=== PATIENT | female | born 1980 | race Caucasian/White ===

== ENCOUNTER 2016-03-31 13:39 | Inpatient (IN) ==
[2016-03-31 14:06] LABS: Bilirubin,Urine Negative (Negative); Blood,Urine Negative (Negative); Clarity,Urine Cloudy (Clear); Color,Urine Yellow (Yellow); Glucose,Urine (UA) Normal (Normal); Ketones,Urine Negative (Negative); Leukocyte Esterase,Urine Moderate (Negative); Nitrite,Urine Negative (Negative); Protein,Urine Negative (Neg-Trace); Specific Gravity,Urine 1.017 (1.010-1.025); Urobilinogen,Urine Normal (Normal)
[2016-03-31 14:08] LABS: Bacteria,Urine Moderate per hpf (None-Few); Hyaline Casts,Urine None Seen per lpf (None-Few); RBC,Urine 0-3 per hpf (0-3); Squamous Epithelial Cell,Urine Many per lpf (None-Few)
[2016-03-31 14:16] LABS: Amphetamine Screen,Urine Negative ng/mL (Cutoff=1000); Barbiturate Screen,Urine Negative ng/mL (Cutoff=200); Benzodiazepines Screen,Urine Negative ng/mL (Cutoff=200); Cannabinoid Screen,Urine Positive ng/mL (Cutoff = 50); Cocaine Screen,Urine Negative ng/mL (Cutoff= 300); Opiate Screen,Urine Negative ng/mL (Cutoff=300); Phencyclidine Screen,Urine Negative ng/mL (Cutoff=25)
[2016-03-31 14:30] LABS: Basophils # 0.1 K/mcL (0.0-0.2); Basophils % 0.5 %; Eosinophils # 0.1 K/mcL (0.0-0.6); Eosinophils % 0.5 %; Hematocrit 45.9 % (35.3-44.9); Hemoglobin 15.2 g/dL (11.5-15.4); Immature Granulocytes % 0.6 % (0-4); Immature Platelets 3.5 % (1.1-6.1); Lymphocytes # 3.2 K/mcL (0.6-4.6); Lymphocytes % 18.3 %; Mean Corpuscular HGB Conc 33.1 g/dL (31.6-35.5); Mean Corpuscular Hemoglobin 30.8 pg (28.0-33.3); Mean Corpuscular Volume 92.9 fL (83.0-100.0); Mean Platelet Volume 10.1 fL (9.4-12.4); Monocytes # 0.9 K/mcL (0.0-1.3); Monocytes % 5.3 %; Neutrophils # 12.9 K/mcL (1.6-8.9); Platelet Count 359 K/mcL (140-400); Red Blood Count 4.94 M/mcL (3.82-4.97); Red Cell Distribution Width 15.7 % (11.5-14.5); Segmented Neutrophils % 74.8 %
--- NOTE | 2016-03-31 14:38 | Emergency Department Note ---
START Narrative - START START: I examined this patient and my medical decision-making was reviewed with the PRECAST WORKER/PA/Advanced Practice Nurse/Resident Physician. I agree with the documented findings, disposition and treatment plan as described except to the extent set forth below. Patient emergency department the chief complaint of wanting to . Patient states that everyone in her family has over the past 2 years and she does not want to be here anymore. Patient states she drank alcohol and took Tylenol last night. Exam shows awake and alert in no distress. Abdomen soft lungs clear. Plan. Medical clearance including an aspirin and Tylenol level.
[2016-03-31 14:44] LABS: Alanine Aminotransferase 19 Units/L (0-55); Albumin 3.6 g/dL (3.5-5.0); Albumin/Globulin Ratio 0.9 (1.1-2.2); Alkaline Phosphatase 97 Units/L (38-126); Aspartate Amino Transferase 18 Units/L (5-34); BUN/Creatinine Ratio 18 (6-26); Bilirubin,Direct 0.1 mg/dL (0.0-0.5); Bilirubin,Indirect 0.1 mg/dL (0.0-1.2); Bilirubin,Total 0.2 mg/dL (0.2-1.2); Blood Urea Nitrogen 14 mg/dL (7-20); Carbon Dioxide 15 mEq/L (19-29); Chloride 110 mEq/L (98-109); Ethanol 87 mg/dL (0-10); Globulin 3.9 g/dL (2.4-3.5); Glucose 133 mg/dL (70-99); Osmolality,Calculated 288 (280-300); Potassium 3.4 mEq/L (3.5-4.5); Sodium 138 mEq/L (136-145); Total Protein 7.5 g/dL (6.0-8.3); eGFR For African Americans > 60 (> 60); eGFR For Non-African Americans > 60 (> 60)
[2016-03-31 14:45] LABS: Salicylate < 5.0 mg/dL (15-30)
[2016-03-31 15:04] LABS: Thyroid Stimulating Hormone 0.591 mcIU/mL (0.350-4.840)
--- NOTE | 2016-03-31 15:19 | Emergency Department Note ---
Disposition Clinical Impression: Suicidal ideations Disposition: Admitted As Inpatient Psych HPI - General Chief Complaint: ED Psychiatric Symptoms Stated Complaint: SI, attempt: pills + ETOH Time Seen by Provider: 03/31/16 13:56 Source: patient - History of Present Illness HPI Narrative: 36 -year-old female presenting with complaint of suicidal ideation, feeling depressed, visual hallucinations. Patient stated that she has history of bipolar, and has not been taking her medication for a very long time. Stated that she has been recently very depressed due to in the family, stated that sometimes she sees her mother either in her dreams are sometimes when she is sitting wide-awake. Patient stated that she took some Benadryl and Tylenol last night around 9 PM, and also consumed alcohol. Patient is currently sober, mentally intact, no belly pain, no chest pain. Pt complaint: suicidal ideation Onset (ago): week(s) (1) Duration: intermittent History of similar episodes: Yes Improves with: none Worsens with: none - Related Data Allergies Allergy/AdvReac Type Severity Reaction Status Date / Time amitriptyline Allergy Seizure Verified 03/31/16 17:25 azithromycin [From Zithromax] Allergy Difficulty Verified 03/22/15 19:58 Breathing divalproex sodium Allergy Vomiting Verified 03/31/16 17:25 [From Depakote] All systems ED: reviewed and negative except as stated. Constitutional: Denies: fever, chills, weakness Cardiovascular: Denies: chest pain, palpitations Respiratory: Denies: cough, dyspnea, wheezes Gastrointestinal: Denies: abdominal pain, nausea Genitourinary: Denies: urgency, dysuria, frequency Neurological: Denies: headache, weakness, numbness Psychiatric: Reports: anxiety, depression, suicidal thoughts Past Medical History - Past Medical History Medical history: Reports: hypertension Psychiatric history: Reports: bipolar [employer] history: Reports: bilateral tubal ligation - Social History Smoking Status: Current every day smoker Smokeless Tobacco Status: No Alcohol use: Reports: occasionally Drug use: Reports: none Physical Exam - General Limitations: no limitations General appearance: alert, in no apparent distress - Head Head exam: atraumatic, normocephalic, normal inspection - Eye Eye exam: Present: normal appearance, PERRL, EOMI - Expanded Eye Exam Pupils: Left: reactive - ENT ENT exam: normal exam, normal oropharynx, mucous membranes moist - Expanded ENT Exam External ear exam: Present: normal external inspection Mouth exam: Present: normal external inspection Teeth exam: Present: normal inspection Throat exam: Present: normal inspection - Neck Neck exam: Present: normal inspection, full ROM, trachea midline - Chest Chest inspection: Present: normal inspection, symmetric chest wall rise - Respiratory Respiratory exam: Present: normal lung sounds bilaterally - Cardiovascular Cardiovascular exam: Present: regular rate, normal rhythm, normal heart sounds - Abdominal Exam Abdominal exam: Present: soft, Non-Tender. Absent: tenderness, distention, guarding, rebound, rigidity - Extremities Exam Extremities exam: Present: normal inspection, full ROM. Absent: tenderness, pedal edema - Expanded Upper Extremity Exam Vascular exam: Normal: capillary refill, radial pulse - Expanded Lower Extremity Exam Neurovascular/Tendon exam: Absent: motor deficit, sensory deficit, tendon deficit - Back Exam Back exam: Present: normal inspection, full ROM. Absent: tenderness - Neurological Exam Neurological exam: Present: alert, oriented X3 - Expanded Neurological Exam Patient oriented to: Present: person, place, time Coma Scale Eye Opening: Spontaneous Coma Scale Motor Response: Obeys Commands Coma Scale Verbal Response: Oriented Coma Scale Total: 15 - Psychiatric Psychiatric exam: Present: normal affect, normal mood - Skin Skin exam: Present: warm, dry, intact, normal color Course Course Narrative: Patient presented with complaint of suicidal ideation, depression, visual hallucinations. She has history of bipolar, she seems tearful in the ED. I will clear patient medically and have her be seen by psychiatry for further evaluation. Patient stated that she took some Tylenol with alcohol last night, it's not clear how much she took. Salicylate/acetaminophen levels in the ED within normal limits. Vital Signs Temperature 99.1 F 03/31/16 13:44 Pulse Rate 68 03/31/16 13:44 Respiratory Rate 16 03/31/16 13:44 Blood Pressure 138/91 03/31/16 13:44 O2 Sat by Pulse Oximetry 98 03/31/16 13:44 Temperature 99.1 F 03/31/16 18:07 Pulse Rate 116 03/31/16 18:07 Respiratory Rate 18 03/31/16 18:07 Blood Pressure 129/97 03/31/16 18:07 O2 Sat by Pulse Oximetry 98 03/31/16 13:44 Oxygen Delivery Oxygen Delivery Room Air Psych - Lab Data Result diagrams: 03/31/16 14:24 03/31/16 14:24 Lab Results 03/31/16 03/31/16 03/31/16 Range/Units 14:00 14:00 14:00 WBC (4.3-11.1) K/mcL RBC (3.82-4.97) M/mcL Hgb (11.5-15.4) g/dL Hct (35.3-44.9) % MCV (83.0-100.0) fL MCH (28.0-33.3) pg MCHC (31.6-35.5) g/dL RDW (11.5-14.5) % Plt Count (140-400) K/mcL MPV (9.4-12.4) fL Immature Gran % (0-4) % Seg Neutrophils % % Lymphocytes % % Monocytes % % Eosinophils % % Basophils % % Neutrophils # (1.6-8.9) K/mcL Lymphocytes # (0.6-4.6) K/mcL Monocytes # (0.0-1.3) K/mcL Eosinophils # (0.0-0.6) K/mcL Basophils # (0.0-0.2) K/mcL Immature Plt Fraction (1.1-6.1) % Sodium (136-145) mEq/L Potassium (3.5-4.5) mEq/L Chloride (98-109) mEq/L Carbon Dioxide (19-29) mEq/L BUN (7-20) mg/dL Creatinine (0.57-1.11) mg/dL Est GFR ( Amer) (> 60) Est GFR (Non-Af Amer) (> 60) BUN/Creatinine Ratio (6-26) Glucose (70-99) mg/dL Calculated Osmolality (280-300) Calcium (8.6-10.8) mg/dL Total Bilirubin (0.2-1.2) mg/dL Direct Bilirubin (0.0-0.5) mg/dL Indirect Bilirubin (0.0-1.2) mg/dL AST (5-34) Units/L ALT (0-55) Units/L Alkaline Phosphatase (38-126) Units/L Serum Total Protein (6.0-8.3) g/dL Albumin (3.5-5.0) g/dL Globulin (2.4-3.5) g/dL Albumin/Globulin Ratio (1.1-2.2) TSH (0.350-4.840) mcIU/mL Urine Color Yellow (Yellow) Urine Clarity Cloudy A (Clear) Urine pH 6.0 (5.0-8.0) pH Units Ur Specific [place] 1.017 (1.010-1.025) Urine Protein Negative (Neg-Trace) mg/dL Urine Glucose (UA) Normal (Normal) mg/dL Urine Ketones Negative (Negative) mg/dL Urine Blood Negative (Negative) Urine Nitrite Negative (Negative) Urine Bilirubin Negative (Negative) Urine Urobilinogen Normal (Normal) mg/dL Ur Leukocyte Esterase Moderate H (Negative) Urine Microscopic RBC 0-3 (0-3) per hpf Urine Microscopic WBC 5-15 H (0-3) per hpf Ur Squamous Epith Cells Many H (None-Few) per lpf Urine Bacteria Moderate H (None-Few) per hpf Hyaline Casts None Seen (None-Few) per lpf Urine Test Negative (Negative) Salicylates (15-30) mg/dL Urine Opiates Screen Negative (Kswoyp=184) ng/mL Acetaminophen (10-30) mcg/mL Ur Barbiturates Screen Negative (Oyiwqf=415) ng/mL Ur Phencyclidine Scrn Negative (Cutoff=25) ng/mL Ur Amphetamines Screen Negative (Tzxiiw=8521) ng/mL U Benzodiazepines Scrn Negative (Gadhub=024) ng/mL Urine Cocaine Screen Negative (Cutoff= 300) ng/mL U Marijuana (THC) Screen Positive H (Cutoff = 50) ng/mL Ethyl Alcohol (0-10) mg/dL 03/31/16 03/31/16 Range/Units 14:24 14:24 WBC 17.2 H (4.3-11.1) K/mcL RBC 4.94 (3.82-4.97) M/mcL Hgb 15.2 (11.5-15.4) g/dL Hct 45.9 H (35.3-44.9) % MCV 92.9 (83.0-100.0) fL MCH 30.8 (28.0-33.3) pg MCHC 33.1 (31.6-35.5) g/dL RDW 15.7 H (11.5-14.5) % Plt Count 359 (140-400) K/mcL MPV 10.1 (9.4-12.4) fL Immature Gran % 0.6 (0-4) % Seg Neutrophils % 74.8 % Lymphocytes % 18.3 % Monocytes % 5.3 % Eosinophils % 0.5 % Basophils % 0.5 % Neutrophils # 12.9 H (1.6-8.9) K/mcL Lymphocytes # 3.2 (0.6-4.6) K/mcL Monocytes # 0.9 (0.0-1.3) K/mcL Eosinophils # 0.1 (0.0-0.6) K/mcL Basophils # 0.1 (0.0-0.2) K/mcL Immature Plt Fraction 3.5 (1.1-6.1) % Sodium 138 (136-145) mEq/L Potassium 3.4 L (3.5-4.5) mEq/L Chloride 110 H (98-109) mEq/L Carbon Dioxide 15 L (19-29) mEq/L BUN 14 (7-20) mg/dL Creatinine 0.78 (0.57-1.11) mg/dL Est GFR ( Amer) > 60 (> 60) Est GFR (Non-Af Amer) > 60 (> 60) BUN/Creatinine Ratio 18 (6-26) Glucose 133 H (70-99) mg/dL Calculated Osmolality 288 (280-300) Calcium 9.0 (8.6-10.8) mg/dL Total Bilirubin 0.2 (0.2-1.2) mg/dL Direct Bilirubin 0.1 (0.0-0.5) mg/dL Indirect Bilirubin 0.1 (0.0-1.2) mg/dL AST 18 (5-34) Units/L ALT 19 (0-55) Units/L Alkaline Phosphatase 97 (38-126) Units/L Serum Total Protein 7.5 (6.0-8.3) g/dL Albumin 3.6 (3.5-5.0) g/dL Globulin 3.9 H (2.4-3.5) g/dL Albumin/Globulin Ratio 0.9 L (1.1-2.2) TSH 0.591 (0.350-4.840) mcIU/mL Urine Color (Yellow) Urine Clarity (Clear) Urine pH (5.0-8.0) pH Units Ur Specific [place] (1.010-1.025) Urine Protein (Neg-Trace) mg/dL Urine Glucose (UA) (Normal) mg/dL Urine Ketones (Negative) mg/dL Urine Blood (Negative) Urine Nitrite (Negative) Urine Bilirubin (Negative) Urine Urobilinogen (Normal) mg/dL Ur Leukocyte Esterase (Negative) Urine Microscopic RBC (0-3) per hpf Urine Microscopic WBC (0-3) per hpf Ur Squamous Epith Cells (None-Few) per lpf Urine Bacteria (None-Few) per hpf Hyaline Casts (None-Few) per lpf Urine Test (Negative) Salicylates < 5.0 L (15-30) mg/dL Urine Opiates Screen (Vmfxyd=207) ng/mL Acetaminophen 2.0 L (10-30) mcg/mL Ur Barbiturates Screen (Bmubah=252) ng/mL Ur Phencyclidine Scrn (Cutoff=25) ng/mL Ur Amphetamines Screen (Jovdmh=3025) ng/mL U Benzodiazepines Scrn (Ktpegt=392) ng/mL Urine Cocaine Screen (Cutoff= 300) ng/mL U Marijuana (THC) Screen (Cutoff = 50) ng/mL Ethyl Alcohol 87 H (0-10) mg/dL - EKG Data EKG shows normal: sinus rhythm Rate: normal Rhythm: NSR Interpretation: no acute changes Psychiatric Medical Clearance - Medical Clearance Checklist Medical History: No Social History Section defined Current Vitals: Last Vital Signs Temp 99.1 F 03/31/16 18:07 Pulse 116 03/31/16 18:07 Resp 18 03/31/16 18:07 BP 129/97 03/31/16 18:07 Pulse Ox 98 03/31/16 13:44 Psychiatric Lab Panel: Drug Levels and Toxicity 03/31/16 03/31/16 14:00 14:24 Urine Opiates Screen Negative Acetaminophen 2.0 L Ur Barbiturates Screen Negative Ur Phencyclidine Scrn Negative Ur Amphetamines Screen Negative U Benzodiazepines Scrn Negative Urine Cocaine Screen Negative U Marijuana (THC) Screen Positive H Ethyl Alcohol 87 H Abnormal Labs: Abnormal lab results WBC 17.2 K/mcL (4.3-11.1) H 03/31/16 14:24 Hct 45.9 % (35.3-44.9) H 03/31/16 14:24 RDW 15.7 % (11.5-14.5) H 03/31/16 14:24 Neutrophils # 12.9 K/mcL (1.6-8.9) H 03/31/16 14:24 Potassium 3.4 mEq/L (3.5-4.5) L 03/31/16 14:24 Chloride 110 mEq/L (98-109) H 03/31/16 14:24 Carbon Dioxide 15 mEq/L (19-29) L 03/31/16 14:24 Glucose 133 mg/dL (70-99) H 03/31/16 14:24 Globulin 3.9 g/dL (2.4-3.5) H 03/31/16 14:24 Albumin/Globulin Ratio 0.9 (1.1-2.2) L 03/31/16 14:24 Urine Clarity Cloudy (Clear) A 03/31/16 14:00 Ur Leukocyte Esterase Moderate (Negative) H 03/31/16 14:00 Urine Microscopic WBC 5-15 per hpf (0-3) H 03/31/16 14:00 Ur Squamous Epith Cells Many per lpf (None-Few) H 03/31/16 14:00 Urine Bacteria Moderate per hpf (None-Few) H 03/31/16 14:00 Salicylates < 5.0 mg/dL (15-30) L 03/31/16 14:24 Acetaminophen 2.0 mcg/mL (10-30) L 03/31/16 14:24 U Marijuana (THC) Screen Positive ng/mL (Cutoff = 50) H 03/31/16 14:00 Ethyl Alcohol 87 mg/dL (0-10) H 03/31/16 14:24 Statement of Medical Clearance: I have evaluated the patient, reviewed diagnostic information, and certify that the patient's medical condition is sufficiently stable that transfer to the psychiatric unit does not pose a significant risk of deterioration.
[2016-03-31] MEDS ORDERED: Nicotine 21 MG PATCH.TD24 TD STA (15:27)
[2016-03-31] MEDS ORDERED: Ibuprofen 400 MG TABLET PO PRN (18:00)
[2016-03-31] MEDS ORDERED: *HR* LORazepam 1 MG TABLET PO PRN (18:00)
[2016-03-31] MEDS ORDERED: traZODone 50 MG TABLET PO PRN (18:00)
[2016-03-31] MEDS ORDERED: Haloperidol Lactate 5 MG/ML VIAL IM PRN (18:00)
[2016-03-31] MEDS ORDERED: MOM Conc 10 ML UD.LIQ PO PRN (18:00)
[2016-03-31] MEDS ORDERED: Nicotine 21 MG PATCH.TD24 TD SCH (18:00)
[2016-03-31] MEDS ORDERED: Mag Hydrox/Al Hydrox/Simeth 30 ML UDC PO PRN (18:00)
[2016-03-31] MEDS ORDERED: *HR* LORazepam 2 MG/ML VIAL IM PRN (18:00)
[2016-03-31] MEDS: hydrOXYzine pamoate 25 MG CAPSULE PO PRN ×2 (19:03→20:47)
[2016-03-31] MEDS: Nicotine 2 MG GUM BC PRN (20:48)
[2016-04-01] MEDS: Nicotine 2 MG GUM BC PRN ×4 (07:22→17:09)
[2016-04-01] MEDS: hydrOXYzine pamoate 25 MG CAPSULE PO PRN ×2 (08:28→15:44)
--- NOTE | 2016-04-01 10:54 | Psychiatry History & Physical ---
Date of Encounter: 04/01/16 Time of Encounter: 10:00 History of Present Illness Patient Stated Chief Complaint: "I just got so overwhelmed." Medicare Admission Attestation: For traditional Medicare patients the provided hospital inpatient services are reasonable and necessary and in the case of services not specified as inpatient -only under 42 CFR 419.22 (n), that they are appropriately provided as inpatient services in accordance 42 CFR 412.3. For Critical Access Hospital the patient may reasonably be expected to be discharged or transferred to a hospital within 96 hours after admission to the Critical Access Hospital. Admitted From: Home History of Present Illness: Ms. De Jesus is a 36 year old female with a history of bipolar disorder and currently not taking any medications who presented to the hospital after overdose on Benadryl and alcohol. Patient states that she has had a lot of stressors lately. She lives at home with 6 children. Two of them are biologically hers, one of them is her niece, who she raises because her sister , and 3 of her boyfriend's children. Patient reports that she feels a lot of stress with everything. She reports continued suicidal ideation without plan the hospital. Reports difficulty sleeping and states that she only sleeps 4-5 hours a night for the past 2 years. She reports occasional nightmares that wake her up. She denies auditory or visual hallucinations. She denies obsessions, delusions, paranoia. She reports occasional homicidal ideations that are generalized. She does report severe mood swings, irritability, occasional panic attacks. She also reports generalized nervousness and worry frequently. She reports she has trouble leaving her house because she becomes very anxious. She does have a history of previous suicide attempts and psychiatric admissions. She also reports that she drinks alcohol heavily. She denies withdrawal symptoms this morning. Past Med Surg Social Fam HX - Past Medical History Medical history: hypertension - Past Psychiatric History Psychiatric history: Reports: anxiety, bipolar, prior suicide attempt, previous psychiatric hospitalization Past psychiatric history details: Patient has not been on medications for close to 10 years. She has previous psychiatric admissions. She has attempted suicide in the past. Patient reports that Depakote made her feel very sick and she has also been on Abilify but this did not help Family psychiatric history: Yes Family Psychiatric History Details: Patient reports that she has an uncle with depression. Family History of Suicide: None - Social History Smoking Status: Current every day smoker Smokeless Tobacco Status: No Alcohol use: occasionally, heavy Drug use: none Occupational status: unemployed Current living situation: Home, With Family Activity Level: Independent ambulation Medications & Allergies Allergies amitriptyline Allergy (Verified 03/31/16 17:25) Seizure azithromycin [From Zithromax] Allergy (Verified 03/22/15 19:58) Difficulty Breathing divalproex sodium [From Depakote] Allergy (Verified 03/31/16 17:25) Vomiting Review of Systems Constitutional: Denies: fever, chills, weakness, weight change Eyes: Denies: eye pain, vision change Ears, Nose, Throat: Denies: ear pain, throat pain, dental pain, hearing loss, congestion Cardiovascular: Denies: chest pain, palpitations, dyspnea on exertion Respiratory: Denies: cough, dyspnea, wheezes Gastrointestinal: Denies: abdominal pain, nausea, vomiting, diarrhea, constipation Genitourinary male: Denies: urgency, dysuria, frequency, genital lesions Genitourinary female: Denies: urgency, dysuria, frequency, abnormal menses, dyspareunia Musculoskeletal: Denies: joint swelling, joint pain Integumentary: Denies: rash, lesions, pruritus Neurological: Denies: headache, weakness, numbness, memory loss Psychiatric: Reports: depression, anxiety, abnormal sleep pattern, suicidal ideation, homicidal ideation, anhedonia, difficulty concentrating, hopelessness , irritability, mood swings, panic attacks. Denies: auditory hallucinations, visual hallucinations Endocrine: Denies: fatigue, heat or cold intolerance Hematologic/Lymphatic: Denies: easy bruising, lymphadenopathy Allergic/Immunologic: Denies: urticaria, itchy eyes Mental Status Exam Patient orientation: Yes Person, Yes Time, Yes Place Level of alertness: Alert Patient appearance: Unkempt Behavior: calm, cooperative Psychomotor activity: Normal Eye contact: Maintains Eye Contact Mood description: Depressed, Anxious Affect description: flat, dysphoric Speech pattern: Normal rate, Normal rhythm, Normal tone Speech volume: Normal Thought process: Intact Thought content: Yes Intact, Yes Suicidal ideation, Yes Homicidal ideation Perceptual disturbances: No Auditory hallucinations, No Visual hallucinations Attention span: Capable of Focused Attention Memory description: Grossly Intact Patient reliability: Reliable Historian Intelligence estimate: Average Judgment: Limited Insight: Minimal Results - Vital Signs Vital signs: Temp Pulse Resp BP Pulse Ox 97.7 F 98 16 125/95 98 04/01/16 08:00 04/01/16 08:00 04/01/16 08:00 04/01/16 08:00 03/31/16 13:44 - Labs Labs: Laboratory Last Values WBC 17.2 K/mcL (4.3-11.1) H 03/31/16 14:24 RBC 4.94 M/mcL (3.82-4.97) 03/31/16 14:24 Hgb 15.2 g/dL (11.5-15.4) 03/31/16 14:24 Hct 45.9 % (35.3-44.9) H 03/31/16 14:24 MCV 92.9 fL (83.0-100.0) 03/31/16 14:24 MCH 30.8 pg (28.0-33.3) 03/31/16 14:24 MCHC 33.1 g/dL (31.6-35.5) 03/31/16 14:24 RDW 15.7 % (11.5-14.5) H 03/31/16 14:24 Plt Count 359 K/mcL (140-400) 03/31/16 14:24 MPV 10.1 fL (9.4-12.4) 03/31/16 14:24 Immature Gran % 0.6 % (0-4) 03/31/16 14:24 Seg Neutrophils % 74.8 % 03/31/16 14:24 Lymphocytes % 18.3 % 03/31/16 14:24 Monocytes % 5.3 % 03/31/16 14:24 Eosinophils % 0.5 % 03/31/16 14:24 Basophils % 0.5 % 03/31/16 14:24 Neutrophils # 12.9 K/mcL (1.6-8.9) H 03/31/16 14:24 Lymphocytes # 3.2 K/mcL (0.6-4.6) 03/31/16 14:24 Monocytes # 0.9 K/mcL (0.0-1.3) 03/31/16 14:24 Eosinophils # 0.1 K/mcL (0.0-0.6) 03/31/16 14:24 Basophils # 0.1 K/mcL (0.0-0.2) 03/31/16 14:24 Immature Plt Fraction 3.5 % (1.1-6.1) 03/31/16 14:24 Sodium 138 mEq/L (136-145) 03/31/16 14:24 Potassium 3.4 mEq/L (3.5-4.5) L 03/31/16 14:24 Chloride 110 mEq/L (98-109) H 03/31/16 14:24 Carbon Dioxide 15 mEq/L (19-29) L 03/31/16 14:24 BUN 14 mg/dL (7-20) 03/31/16 14:24 Creatinine 0.78 mg/dL (0.57-1.11) 03/31/16 14:24 Est GFR ( Amer) > 60 (> 60) 03/31/16 14:24 Est GFR (Non-Af Amer) > 60 (> 60) 03/31/16 14:24 BUN/Creatinine Ratio 18 (6-26) 03/31/16 14:24 Glucose 133 mg/dL (70-99) H 03/31/16 14:24 Calculated Osmolality 288 (280-300) 03/31/16 14:24 Calcium 9.0 mg/dL (8.6-10.8) 03/31/16 14:24 Total Bilirubin 0.2 mg/dL (0.2-1.2) 03/31/16 14:24 Direct Bilirubin 0.1 mg/dL (0.0-0.5) 03/31/16 14:24 Indirect Bilirubin 0.1 mg/dL (0.0-1.2) 03/31/16 14:24 AST 18 Units/L (5-34) 03/31/16 14:24 ALT 19 Units/L (0-55) 03/31/16 14:24 Alkaline Phosphatase 97 Units/L (38-126) 03/31/16 14:24 Serum Total Protein 7.5 g/dL (6.0-8.3) 03/31/16 14:24 Albumin 3.6 g/dL (3.5-5.0) 03/31/16 14:24 Globulin 3.9 g/dL (2.4-3.5) H 03/31/16 14:24 Albumin/Globulin Ratio 0.9 (1.1-2.2) L 03/31/16 14:24 TSH 0.591 mcIU/mL (0.350-4.840) 03/31/16 14:24 Urine Color Yellow (Yellow) 03/31/16 14:00 Urine Clarity Cloudy (Clear) A 03/31/16 14:00 Urine pH 6.0 pH Units (5.0-8.0) 03/31/16 14:00 Ur Specific [place] 1.017 (1.010-1.025) 03/31/16 14:00 Urine Protein Negative mg/dL (Neg-Trace) 03/31/16 14:00 Urine Glucose (UA) Normal mg/dL (Normal) 03/31/16 14:00 Urine Ketones Negative mg/dL (Negative) 03/31/16 14:00 Urine Blood Negative (Negative) 03/31/16 14:00 Urine Nitrite Negative (Negative) 03/31/16 14:00 Urine Bilirubin Negative (Negative) 03/31/16 14:00 Urine Urobilinogen Normal mg/dL (Normal) 03/31/16 14:00 Ur Leukocyte Esterase Moderate (Negative) H 03/31/16 14:00 Urine Microscopic RBC 0-3 per hpf (0-3) 03/31/16 14:00 Urine Microscopic WBC 5-15 per hpf (0-3) H 03/31/16 14:00 Ur Squamous Epith Cells Many per lpf (None-Few) H 03/31/16 14:00 Urine Bacteria Moderate per hpf (None-Few) H 03/31/16 14:00 Hyaline Casts None Seen per lpf (None-Few) 03/31/16 14:00 Urine Test Negative (Negative) 03/31/16 14:00 Salicylates < 5.0 mg/dL (15-30) L 03/31/16 14:24 Urine Opiates Screen Negative ng/mL (Opcjin=597) 03/31/16 14:00 Acetaminophen 2.0 mcg/mL (10-30) L 03/31/16 14:24 Ur Barbiturates Screen Negative ng/mL (Inmdfy=289) 03/31/16 14:00 Ur Phencyclidine Scrn Negative ng/mL (Cutoff=25) 03/31/16 14:00 Ur Amphetamines Screen Negative ng/mL (Xsroit=8846) 03/31/16 14:00 U Benzodiazepines Scrn Negative ng/mL (Smscmo=707) 03/31/16 14:00 Urine Cocaine Screen Negative ng/mL (Cutoff= 300) 03/31/16 14:00 U Marijuana (THC) Screen Positive ng/mL (Cutoff = 50) H 03/31/16 14:00 Ethyl Alcohol 87 mg/dL (0-10) H 03/31/16 14:24 Assessment and Plan (1) Bipolar II disorder Current visit: Yes Status: Acute Plan: Admit inpatient for safety and stabilization, Close observation, Suicide Precautions per unit protocol, Encourage participation in unit milieu, Group Therapy, Monitor sleep, Monitor appetite Additional Plan: We will admit to 1A psychiatric stabilization. Suicide precautions. Incorporate into therapeutic milieu. Encourage group attendance. Encourage appropriate sleep hygiene. We will start Wellbutrin SR 150 mg by mouth twice a day. Start Seroquel 50 mg by mouth daily at bedtime for mood stabilization and sleep. Monitor for side effects. Risks, benefits, side effects, alternatives discussed w/pt: Yes Patient agreeable to treatment: Yes Estimated Length of Stay (Days): 3 (2) Anxiety Current visit: Yes Status: Acute Plan: Admit inpatient for safety and stabilization, Close observation, Suicide Precautions per unit protocol, Encourage participation in unit milieu, Group Therapy, Monitor sleep, Monitor appetite Additional Plan: Vistaril as needed for anxiety. Risks, benefits, side effects, alternatives discussed w/pt: Yes Patient agreeable to treatment: Yes (3) Alcohol dependence Current visit: Yes Status: Acute Plan: Admit inpatient for safety and stabilization, Close observation, Suicide Precautions per unit protocol, Encourage participation in unit milieu, Group Therapy, Monitor sleep, Monitor appetite Additional Plan: We will monitor vitals closely. Patient is denying withdrawal symptoms at present. Patient was somewhat vague on how much she drinks but does admit to drinking heavily recently. Risks, benefits, side effects, alternatives discussed w/pt: Yes Patient agreeable to treatment: Yes Plans for Post Hospital Care: Home Qualifiers: Substance use status: uncomplicated Qualified Code(s): F10.20 - Alcohol dependence, uncomplicated (4) Personality disorder Current visit: Yes Status: Acute Plan: Admit inpatient for safety and stabilization, Close observation, Suicide Precautions per unit protocol, Encourage participation in unit milieu, Group Therapy, Monitor sleep, Monitor appetite Additional Plan: Encourage positive coping skills to deal with stress. Patient has a history of poor relationship skills and coping skills. Encourage group attendance. Risks, benefits, side effects, alternatives discussed w/pt: Yes Patient agreeable to treatment: Yes (5) Cannabis abuse Current visit: Yes Status: Acute Additional Plan: Discourage cannabis use. Risks, benefits, side effects, alternatives discussed w/pt: Yes Patient agreeable to treatment: Yes
[2016-04-01] MEDS: BuPROPion SR (12 HR) 150 MG TABLET PO SCH ×2 (12:59→20:52)
[2016-04-02] MEDS: Nicotine 2 MG GUM BC PRN (08:03)
[2016-04-02] MEDS: BuPROPion SR (12 HR) 150 MG TABLET PO SCH (08:03)
--- NOTE | 2016-04-02 12:07 | Discharge Summary ---
Date of Encounter: 04/02/16 Time of Encounter: 11:00 Diagnosis - Discharge Diagnosis (1) Bipolar II disorder Priority: Primary Status: Acute (2) Anxiety Priority: Secondary Status: Acute (3) Alcohol dependence Priority: Secondary Status: Acute Qualifiers: Substance use status: uncomplicated Qualified Code(s): F10.20 - Alcohol dependence, uncomplicated (4) Personality disorder Priority: Secondary Status: Acute (5) Cannabis abuse Priority: Secondary Status: Acute Medications - Discharge Medications Prescriptions: BuPROPion SR (12 HR) [Wellbutrin SR] 150 mg PO BID #60 tablet.er HydrOXYzine Pamoate 50 mg PO TID PRN #90 capsule PRN Reason: Anxiety Quetiapine Fumarate [Seroquel] 50 mg PO HS #60 tablet BuPROPion SR (12 HR) [Wellbutrin SR] 150 mg PO BID #60 tablet.er 04/02/16 [Rx] HydrOXYzine Pamoate 50 mg PO TID PRN #90 capsule 04/02/16 [Rx] Quetiapine Fumarate [Seroquel] 50 mg PO HS #60 tablet 04/02/16 [Rx] Allergies amitriptyline Allergy (Verified 03/31/16 17:25) Seizure azithromycin [From Zithromax] Allergy (Verified 03/22/15 19:58) Difficulty Breathing divalproex sodium [From Depakote] Allergy (Verified 03/31/16 17:25) Vomiting Provider Date of admission: 03/31/16 17:49 Primary care physician: PCP NO Discharging clinician: Steph Aranda Assessment and Plan - Patient/Caregiver Discharge Instructions Activity: resume usual activities as tolerated Diet: regular diet - Follow up Plan Follow up with: Maciel Childress [facility] [Outside] - 04/14/16 3:30 pm (The above appointment is with Raissa Davidson. When you come to your first appointment, you will have an orientation to the agency and you will meet with a counselor. Please bring the following with you to your first visit to the clinic: 1) proof of household income (two consecutive pay stubs, social security award letter, bank statement, [facility] letter [facility], child support statement, IRS 1040 or W2 form, or a statement from the person who financially supports you stating they help provide for your basic needs), 2) proof of residency (drivers license, a piece of mail showing your address, a statement from person you live with verifying you live at their address), 3) your social security number, and 4) your insurance card (if you have commercial insurance you must call to obtain a prior authorization number before you arrive to your first appointment). If you do not bring these items, you will not be seen.) Chava Baugh, STEPHY [Physician Tin Tie [employer]] - (The above appointment is with MOLLY Wilson at [facility]. This appointment is to establish you with a primary care provider. If you have needs related to psychiatric medication and/ or Vivitrol, you will be assessed for these as well. Please arrive 15 minutes early to complete paperwork. Please bring your insurance card, photo ID and list of current medications to your first appointment.) Functional capacity at discharge: independent ambulation Overall status at discharge: Stable Disposition: Home, Self-Care Hospital Course Hospital course: Ms. De Jesus is a 36 year old female with a history of bipolar disorder and anxiety as well as polysubstance abuse who presented to the hospital after taking an overdose of Benadryl and drinking alcohol. She was admitted to [facility] for psychiatric stabilization. Patient was incorporated into the therapeutic milieu and offer group and individual as well as recreational therapy. She was also offered psychoeducational materials and supportive therapy. She was placed on suicide precautions. Patient was not on medications for her psychiatric illnesses and was started on Wellbutrin, a low dose of Seroquel for mood stabilization, Vistaril for anxiety. Patient tolerated these medications well. Throughout the course of hospital stay the patient's mood improved. She states that she allow things to get out of control and she started to feel overwhelmed at home. Patient does take care of 6 children at home. Patient reports that she feels that her boyfriend is supportive of her and will help her out. She denied side effects of the medication and did attend group and unit activities. Patient reported improved sleep on the Seroquel. Patient reports that she will try to use new coping strategies she learned on the unit. She is also willing to follow-up with a therapist. Patient states that she did try to get a therapist when when her mood became depressed because she knew she needed to talk to someone. She was told that the wait for a therapist was 1 year. She is happy to start therapy with her appointment that has been made for her. Also encouraged patient to discontinue illicit drug use that this can have negative effects on her mental and physical health. At the time of discharge she denied suicidal ideations and was future oriented. Boyfriend has been contacted is willing to lock up and distribute all medications so that patient will not have access. She is discharged in stable condition. Time spent discussing smoking cessation with patient: 3 to 10 minutes Does patient wish to continue nicotine replacement upon disc: No - Time Spent with Patient Total time spent providing and/or coordinating discharge services: Greater than 30 minutes Quality - Multiple Antipsychotics Patient discharged on 2 or more antipsychotic medications: No Procedures - Procedures Procedures: Medication Management, Crisis Stabilization, Supportive Therapy, Group Therapy, Psychoeducational Therapy Mental Status Exam - Mental Status Exam Patient orientation: Yes Person, Yes Time, Yes Place Level of alertness: Alert Patient appearance: Appropriate, Well Groomed Behavior: calm, cooperative Psychomotor activity: Normal Eye contact: Maintains Eye Contact Mood description: Euthymic/stable Affect description: congruent with mood Speech pattern: Normal rate, Normal rhythm, Normal tone Speech Volume: Normal Thought process: Intact Thought Content: Yes Intact, No Suicidal ideation, No Homicidal ideation Perceptual Disturbances: No Auditory hallucinations, No Visual hallucinations Judgment: Fair Insight: Partial
[2016-04-02 12:51] VITALS: BP 139/93
== END 2016-04-02 13:45 | disposition home or self-care (01) | DRG 753 ==
LOC: EMEROO 13:39 → 1ANU 17:49
PROVIDERS: ADMIT Psychiatry & Neurology Psychiatry; ATTEND Psychiatry & Neurology Psychiatry